=== PATIENT | female | born 1990 | race Caucasian/White ===

== ENCOUNTER 2017-02-11 13:06 | Emergency (ER) | payer OTHER | END 2017-02-11 14:25 | disposition home or self-care (01) | LOC: FER 13:06 | DX: S93.401A Sprain of unspecified ligament of right ankle, initial encounter (principal); X50.1XXA Overexertion from prolonged static or awkward postures, initial encounter; Y92.009 Unspecified place in unspecified non-institutional (private) residence as the place of occurrence of the external cause | CPT/HCPCS: 73610 ==

== ENCOUNTER 2020-12-22 18:07 | Inpatient (IN) | payer OTHER ==
[~2020-12-22 18:07] MED LIST: COLACE100 MG PO; FEOSOL325 MG PO; MOTRIN600 MG PO
[2020-12-22 19:16] LABS: AMPHETAMINES NEGATIVE (NEGATIVE); BARBITURATES NEGATIVE (NEGATIVE); ECSTASY (MDMA) NEGATIVE (NEGATIVE); MARIJUANA (THC) NEGATIVE (NEGATIVE); METHADONE NEGATIVE (NEGATIVE); OPIATES NEGATIVE (NEGATIVE); OXYCODONE NEGATIVE (NEGATIVE)
[2020-12-22 19:17] LABS: BILIRUBIN NEGATIVE (NEGATIVE); BLOOD TRACE-INTACT Ery/uL (NEGATIVE); CLARITY CLEAR (CLEAR); COLOR YELLOW (YELLOW); GLUCOSE (U) NORMAL (NORMAL); LEUKOCYTES NEGATIVE Leu/uL (NEGATIVE); NITRITE NEGATIVE (NEGATIVE); PROTEIN 1+ mg/dL (NEGATIVE); SPECIFIC GRAVITY 1.025 (1.001-1.030); UROBILINOGEN 0.2 mg/dL (0.2-1.0)
[2020-12-22 19:23] LABS: URINARY RBC RARE; URINARY WBC RARE
[2020-12-22 19:24] LABS: BACTERIA TRACE
[2020-12-22 19:48] LABS: HCT 31.9 % (37.0-47.0); HGB 10.2 g/dl (12.5-16.0); MCH 27.1 pg (25.0-31.0); MCV 84.8 fL (78.0-100.0); MPV 10.2 fL (6.0-9.5); RBC 3.76 M/uL (4.20-5.40); RDW 14.6 % (11.5-14.0); WBC 9.4 K/uL (4.0-10.5)
[2020-12-22 20:07] LABS: ALBUMIN 2.7 g/dL (3.4-5.0); BILIRUBIN - TOTAL 0.2 mg/dL (0.2-1.0); BUN/CREAT RATIO (CALC) 19.4 RATIO; CREATININE 0.67 mg/dL (0.51-0.95); GLOBULIN (CALCULATION) 3.8 g/dL; POTASSIUM 3.8 mmol/L (3.5-5.1); TOTAL PROTEIN 6.5 g/dL (6.4-8.2)
[2020-12-22 20:22] LABS: PROTEIN:CREATININE 0.26 RATIO; URINE CREATININE 256.64 mg/dL (29.00-226.00); URINE TOTAL PROTEIN-RANDOM 68.1 mg/dL (<11.9)
[2020-12-24 07:30] LABS: HCT 30.6 % (37.0-47.0); HGB 9.6 g/dl (12.5-16.0); MCH 26.8 pg (25.0-31.0); MCHC 31.4 g/dL (32.0-36.0); MCV 85.5 fL (78.0-100.0); MPV 9.9 fL (6.0-9.5); RBC 3.58 M/uL (4.20-5.40); RDW 14.6 % (11.5-14.0)
== END 2020-12-25 13:00 | disposition home or self-care (01) | DRG 806 ==
LOC: FOD 18:07 → FOB 18:08
PROVIDERS: Obstetrics & Gynecology; ADMIT Obstetrics & Gynecology
PROC: 10E0XZZ Delivery of Products of Conception, External Approach (ICD-10-PCS; principal; 2020-12-23)
PROC: 4A1HX4Z Monitoring of Products of Conception, Cardiac Electrical Activity, External Approach (ICD-10-PCS; 2020-12-23)
DX: O13.4 Gestational [pregnancy-induced] hypertension without significant proteinuria, complicating childbirth (principal); D62 Acute posthemorrhagic anemia; Z37.0 Single live birth; O99.214 Obesity complicating childbirth; E66.9 Obesity, unspecified; Z3A.38 38 weeks gestation of pregnancy; O99.03 Anemia complicating the puerperium; D50.9 Iron deficiency anemia, unspecified; Z79.899 Other long term (current) drug therapy; Z20.822 Contact with and (suspected) exposure to COVID-19
CPT/HCPCS: 36415; 80053; 80305; 81001; 82570; 83615; 84156; 84550; 86850; 86900; 86901; J7120; U0002

== ENCOUNTER 2021-06-26 16:46 | Emergency (ER) | payer OTHER ==
[2021-06-26 19:37] LABS: BILIRUBIN NEGATIVE (NEGATIVE); BLOOD 1+ Ery/uL (NEGATIVE); CLARITY CLEAR (CLEAR); COLOR YELLOW (YELLOW); GLUCOSE (U) NORMAL (NORMAL); LEUKOCYTES NEGATIVE Leu/uL (NEGATIVE); NITRITE NEGATIVE (NEGATIVE); PROTEIN NEGATIVE (NEGATIVE); UROBILINOGEN 0.2 mg/dL (0.2-1.0)
[2021-06-26 19:45] LABS: URINARY WBC RARE
[2021-06-26 19:49] LABS: BASOPHIL 0.5 % (0-2); EOSINOPHIL 0.2 % (0-5); HCT 40.8 % (37.0-47.0); HGB 13.1 g/dl (12.5-16.0); LYMPHOCYTE 24.4 % (15-48); MCH 28.7 pg (25.0-31.0); MCHC 32.1 g/dL (32.0-36.0); MCV 89.3 fL (78.0-100.0); MONOCYTE 12.2 % (0-12); MPV 9.9 fL (6.0-9.5); NEUTROPHIL 62.5 % (41-80); NRBC 0; PLT 326 K/uL (150-400); RBC 4.57 M/uL (4.20-5.40); RDW 13.7 % (11.5-14.0); WBC 4.4 K/uL (4.0-10.5)
[2021-06-26 20:09] LABS: ALBUMIN 3.9 g/dL (3.4-5.0); BILIRUBIN - TOTAL 0.3 mg/dL (0.2-1.0); BUN/CREAT RATIO (CALC) 12.7 RATIO; CREATININE 0.79 mg/dL (0.51-0.95); GLOBULIN (CALCULATION) 3.7 g/dL; POTASSIUM 3.6 mmol/L (3.5-5.1); TOTAL PROTEIN 7.6 g/dL (6.4-8.2)
[2021-06-26] MEDS ORDERED: MEDROL 4MG DOSEP4 MG PO (21:13)
[2021-06-26] MEDS ORDERED: ZPAK PO (21:13)
== END 2021-06-26 21:40 | disposition home or self-care (01) ==
LOC: FER 16:46
PROVIDERS: Emergency Medicine
DX: U07.1 COVID-19 (principal)
CPT/HCPCS: 36415; 71045; 80053; 81001; 82150; 83605; 84145; 85025; 87040; 87088; U0002

== ENCOUNTER 2021-11-30 13:29 | Day surgery (SDC) | payer OTHER ==
[~2021-11-30] VITALS: Ht 160 cm; Wt 99.8 kg
[~2021-11-30 13:29] MED LIST changes: +MEDROL 4MG DOSEP4 MG PO; +ZPAK PO
[2021-11-30 14:32] LABS: BASOPHIL 0.3 % (0-2); EOSINOPHIL 0.7 % (0-5); HCT 40.3 % (37.0-47.0); LYMPHOCYTE 10.1 % (15-48); MCH 31.2 pg (25.0-31.0); MCHC 34.7 g/dL (32.0-36.0); MCV 89.8 fL (78.0-100.0); MONOCYTE 5.1 % (0-12); MPV 9.8 fL (6.0-9.5); NEUTROPHIL 83.4 % (41-80); NRBC 0; PLT 404 K/uL (150-400); RBC 4.49 M/uL (4.20-5.40); RDW 12.7 % (11.5-14.0); WBC 11.2 K/uL (4.0-10.5)
[2021-11-30 14:54] LABS: ALBUMIN 4.2 g/dL (3.4-5.0); BILIRUBIN - TOTAL 0.4 mg/dL (0.2-1.0); BUN/CREAT RATIO (CALC) 19.4 RATIO; CREATININE 0.67 mg/dL (0.51-0.95); GLOBULIN (CALCULATION) 3.8 g/dL; POTASSIUM 3.3 mmol/L (3.5-5.1)
[2021-11-30 16:12] LABS: BILIRUBIN 1+ mg/dL (NEGATIVE); BLOOD 3+ Ery/uL (NEGATIVE); COLOR YELLOW (YELLOW); GLUCOSE (U) NORMAL (NORMAL); LEUKOCYTES 2+ Leu/uL (NEGATIVE); NITRITE NEGATIVE (NEGATIVE); PROTEIN 1+ mg/dL (NEGATIVE); SPECIFIC GRAVITY 1.025 (1.001-1.030); pH 6.5 (5.0-9.0)
[2021-11-30 16:14] LABS: CLARITY CLOUDY (CLEAR)
[2021-11-30 16:36] LABS: SQUAMOUS EPITHELIAL CELLS 20-50
[2021-11-30 16:37] LABS: AMORPHOUS URATES CRYSTALS MODERATE
[2021-11-30 16:38] LABS: BACTERIA TRACE
[2021-11-30 18:37] LABS: INFLUENZA A NAA NEGATIVE (NEGATIVE)
[2021-11-30 18:40] LABS: CORONAVIRUS 2019 SARS-COV-2 POSITIVE (NEGATIVE)
[2021-11-30] MEDS ORDERED: COLACE100 MG PO (20:58)
[2021-11-30] MEDS ORDERED: OXY-IR 5MG5 MG PO (20:58)
[2021-11-30] MEDS ORDERED: ACETAMINOPHEN500 M1 PO (20:58)
== END 2021-11-30 23:10 | disposition home or self-care (01) ==
LOC: FER 13:29 → FMS 21:08 → FAS 21:08
PROVIDERS: Nurse Practitioner Family
DX: K35.80 Unspecified acute appendicitis (principal); U07.1 COVID-19; Z98.51 Tubal ligation status
CPT/HCPCS: 36415; 71045; 80053; 81001; 85025; J1644; J1885; J2250; J2405; J2543; J2704; J3010; J7030; J7120; Q9967; U0002